=== PATIENT | female | born 1960 | race Caucasian/White ===

== ENCOUNTER 2017-08-15 20:29 | Emergency (ER) | payer OTHER ==
[~2017-08-15] VITALS: Ht 149.9 cm; Wt 43.5 kg
[2017-08-15] MEDS ORDERED: ONDANSETRON PF 4 MG/2 ML VIAL. IV ONE (21:00)
[2017-08-15 21:34] LABS: BASO % 1 % (0-3); EOS # 0.1 x10^3/uL (0.0-0.7); EOS % 1 % (0-3); HEMOGLOBIN 14.5 g/dL (12.0-15.5); LYMPH # 0.9 x10^3/uL (1.0-4.8); LYMPH % 16 % (24-48); MEAN CORPUSCULAR HEMOGLOBIN 36 pg (25-35); MEAN CORPUSCULAR HGB CONC 35 g/dL (31-37); MEAN CORPUSCULAR VOLUME 105 fL (79-100); MONO # 0.4 x10^3/uL (0.0-1.1); MONO % 7 % (0-9); NEUT # 4.2 x10^3uL (1.8-7.7); NEUT % 75 % (31-73); PLATELET COUNT 267 x10^3/uL (140-400); RED BLOOD COUNT 3.99 x10^6/uL (3.50-5.40); RED CELL DISTRIBUTION WIDTH 14.1 % (11.5-14.5); WHITE BLOOD COUNT 5.6 x10^3/uL (4.0-11.0)
[2017-08-15 21:42] LABS: CALCIUM 9.1 mg/dL (8.5-10.1); CREATININE 0.8 mg/dL (0.6-1.0); GFR 73.9; POTASSIUM 3.8 mmol/L (3.5-5.1)
--- NOTE | 2017-08-15 22:04 | RAD ---
Two-view right shoulder HISTORY: Pain status post fall Portable AP and Y views right shoulder obtained There is a mildly comminuted fracture of the right humeral neck with mild medial displacement. The glenohumeral relationship is normal. There are few old right rib fractures. IMPRESSION: Acute traumatic right humeral neck fracture. Electronically signed by: Colt Tobin III, MD (08/15/2017 10:01 PM) [facility]
[2017-08-15] MEDS ORDERED: IV NORMAL SALINE 1,000ML 1,000 ML IV ONE (22:45)
--- NOTE | 2017-08-15 23:58 | PHYS DOC ---
Past History Additional Past Medical Histor: Falls, Alcohol abuse Past Surgical History: Smoking: Cigarettes Alcohol Use: Heavy Drug Use: Marijuana Social History Narrative: Homeless; living at assisted presently Adult General Chief Complaint Chief Complaint: MECHANICAL FALL HPI HPI Patient is a 37 year old female who presents with fall. She was outside waiting on a cab to get into the homeless assisted for the night when she slipped on the ice. This is at 5 PM. She fell on her right shoulder. Denies striking her head, no loss of consciousness. Denies any neck back or other extremity pain. She is right-handed. She has frequent falls and noted that she fell down some steps one month ago was seen at [facility] and evaluated then. She has resolving bruising still on her face from that. Denies any injury to her face tonight. She does drink "nearly every day" and it has some alcohol today. Does smoke marijuana but denies any IV drug use. Review of Systems Review of Systems Constitutional: Denies fever or chills Eyes: Denies change in visual acuity, redness, or eye pain HENT: Denies nasal congestion or sore throat Respiratory: Denies cough or shortness of breath Cardiovascular: No chest pain GI: Denies abdominal pain, nausea, vomiting, bloody stools or diarrhea : Denies dysuria or hematuria Musculoskeletal: Denies back pain; POS right joint pain Integument: Denies rash or skin lesions Neurologic: Denies headache, focal weakness or sensory changes All other systems were reviewed and found to be within normal limits, except as documented in this note. Current Medications Current Medications Current Medications Medications (Trade) Dose Ordered Sig/[facility] Start Time Stop Time Status Last Admin Dose Admin Fentanyl Citrate (Fentanyl 2ml Vial) 50 mcg 1X ONCE 08/15/17 23:00 08/15/17 23:01 DC 08/15/17 22:53 50 MCG Ondansetron HCl (Zofran) 4 mg 1X ONCE 08/15/17 21:00 08/15/17 21:01 DC 08/15/17 20:59 4 MG Sodium Chloride 1,000 ml @ 1,000 mls/hr 1X ONCE 08/15/17 22:45 08/15/17 23:44 DC 08/15/17 22:53 1,000 MLS/HR Allergies Allergies Allergies Coded Allergies Type Severity Reaction Last Updated Verified No Known Drug Allergies 08/15/17 No Physical Exam Physical Exam Constitutional: Thin, ill-kempt, no acute distress, non-toxic appearance. HENT: Normocephalic, resolving ecchymosis to face, bilateral external ears normal, oropharynx moist, no oral exudates, nose normal. Eyes: PERRLA, EOMI, conjunctiva normal, no discharge. ill Neck: Normal range of motion, no tenderness, supple, no stridor. Non tender to palpation of cervical spine. No crepitus or step-off. Cardiovascular:Heart rate regular rhythm, no murmur. Nontender to palpation of chest wall. No crepitus or subcutaneous emphysema noted. Lungs & Thorax: Bilateral breath sounds clear to auscultation Abdomen: Bowel sounds normal, soft, no tenderness, no masses, no pulsatile masses. Skin: Warm, dry, no erythema, no rash. Back: No tenderness, no CVA tenderness. Extremities: Right shoulder with obvious deformity. Radial median ulnar nerve intact to motor and sensory. Axillary nerve intact to sensory. Normal neurovascular exam distally. Pain on palpation from the right shoulder to the right elbow. Forearm and wrist without any tenderness palpation. Neurologic: Alert and oriented X 3, normal motor function, normal sensory function, no focal deficits noted. Current Patient Data Vital Signs P 100, BP 130/83, sat 97% Lab Results Laboratory Tests Test 08/15/17 21:10 White Blood Count 5.6 x10^3/uL (4.0-11.0) Red Blood Count 3.99 x10^6/uL (3.50-5.40) Hemoglobin 14.5 g/dL (12.0-15.5) Hematocrit 42.0 % (36.0-47.0) Mean Corpuscular Volume 105 fL (79-100) H Mean Corpuscular Hemoglobin 36 pg (25-35) H Mean Corpuscular Hemoglobin Concent 35 g/dL (31-37) Red Cell Distribution Width 14.1 % (11.5-14.5) Platelet Count 267 x10^3/uL (140-400) Neutrophils (%) (Auto) 75 % (31-73) H Lymphocytes (%) (Auto) 16 % (24-48) L Monocytes (%) (Auto) 7 % (0-9) Eosinophils (%) (Auto) 1 % (0-3) Basophils (%) (Auto) 1 % (0-3) Neutrophils # (Auto) 4.2 x10^3uL (1.8-7.7) Lymphocytes # (Auto) 0.9 x10^3/uL (1.0-4.8) L Monocytes # (Auto) 0.4 x10^3/uL (0.0-1.1) Eosinophils # (Auto) 0.1 x10^3/uL (0.0-0.7) Basophils # (Auto) 0.0 x10^3/uL (0.0-0.2) Sodium Level 141 mmol/L (136-145) Potassium Level 3.8 mmol/L (3.5-5.1) Chloride Level 104 mmol/L (98-107) Carbon Dioxide Level 27 mmol/L (21-32) Anion Gap 10 (6-14) Blood Urea Nitrogen 7 mg/dL (7-20) Creatinine 0.8 mg/dL (0.6-1.0) Estimated GFR (Cockcroft-Gault) 73.9 Glucose Level 82 mg/dL (70-99) Lactic Acid Level 2.0 mmol/L (0.4-2.0) Calcium Level 9.1 mg/dL (8.5-10.1) Radiology/Procedures Radiology/Procedures Right shoulder xray interpreted by myself at 2115 PM with proximal humerus fracture. No dislocation but pseudosubluxation noted probably due to hemarthrosis. Very difficult to obtain films as patient is in a lot of discomfort. Right elbow x-rays interpreted by myself at 2310 PM show no effusion or obvious fracture. Again very difficult to obtain these films due to patient's inability to cooperate. [address] [address] IMAGING REPORT Signed PATIENT: MACHO ESPINAL ACCOUNT: [id number] : 1960 LOCATION: ER AGE: 57 SEX: F EXAM STATUS: PRE ER ORD. PHYSICIAN: DEBBI CID MD REASON: FALL PROCEDURE: SHOULDER 2+V RIGHT Two-view right shoulder HISTORY: Pain status post fall Portable AP and Y views right shoulder obtained There is a mildly comminuted fracture of the right humeral neck with mild medial displacement. The glenohumeral relationship is normal. There are few old right rib fractures. IMPRESSION: Acute traumatic right humeral neck fracture. Electronically signed by: Darek Saldivar III, MD (08/15/2017 10:01 PM) [facility] DICTATED AND SIGNED BY: DAREK SALDIVAR III, MD DATE: 08/15/17 3050 CC: DEBBI CID MD ~ Course & Med Decision Making Course & Med Decision Making Evaluated patient upon arrival. IV fentanyl was dosed for pain. Laboratory data was sent. X-rays were obtained and does not appear to be dislocated, does appear to have a hemarthrosis. I did ask radiology to confirm and agreed that the glenohumeral joint is intact. Elbow was difficult to obtain but again I do not believe there is any acute fracture noted there. Patient required multiple doses of IV fentanyl. At 2330 PM: spoke with Dr Fitzpatrick, Orthopedics at [facility] and Dr Mcbride, hospitalist at [facility] at they accept the patient in transfer. NPO, IV already established with fentanyl dosed for pain. Last ethanol use today (and she drinks "nearly every day"). last po intake 2030 PM. Placed in shoulder immobilizer. At 0008 AM: BP 129/71. Patient dosed with dilaudid with improvement. I have spoken with the patient and/or caregivers. I have explained the patient' s condition, diagnosis and treatment plan based on the information available to me at this time. I have answered the patient's and/or caregiver's questions and addressed any concerns. The patient and/or caregivers have as good an understanding of the patient's diagnosis, condition and treatment plan as can be expected at this point. The patient has been stabilized within the capability of the emergency department. The patient will be transported for further care and management or will be moved to an observation or inpatient service. I have communicated with the staff or medical practitioner taking over this patient's care. I have assessed this patient clinically and believe that their condition requires admission to the hospital. After consulting the admitting physician about this case, they have asked that I admit this patient to their service as an inpatient based on the clinical presentation and my impression. Dragon Disclaimer Dragon Disclaimer This electronic medical record was generated, in whole or in part, using a voice recognition dictation system. Departure Departure: Impression: Primary Impression: Fall Additional Impression: Closed fracture of right proximal humerus [facility] Condition: STABLE Referrals: PCP,NO (PCP) Problem Qualifiers Primary Impression: Fall Encounter type: initial encounter Qualified Codes: W19.XXXA - Unspecified fall, initial encounter Additional Impression: Closed fracture of right proximal humerus Encounter type: initial encounter Fracture morphology: other fracture Fracture alignment: displaced Qualified Codes: S42.291A - Other displaced fracture of upper end of right humerus, initial encounter for closed fracture DEBBI CID MD Aug 15, 2017 23:58
[2017-08-16] MEDS ORDERED: HYDROmorphone PF 1 MG/ML DISP.SYRIN IV ONE (00:30)
[2017-08-16] MEDS ORDERED: HYDROmorphone PF 2 MG/ML VIAL ONE (00:35)
[2017-08-16 00:54] LABS: BACTERIA,URINE MANY /HPF (0-FEW); BILIRUBIN,URINE NEG (NEG); CLARITY,URINE HAZY; COLOR,URINE YELLOW; GLUCOSE,URINE NEG (NEG); NITRITE,URINE POS (NEG); RBC,URINE OCC /HPF (0-2); SQUAMOUS EPITHELIAL CELL,UR FEW /LPF; UROBILINOGEN,URINE 0.2 mg/dL (0.2 mg/dL); WBC,URINE OCC /HPF (0-4)
[2017-08-16 02:54] VITALS: BP 119/72
--- NOTE | 2017-08-16 08:58 | RAD ---
2 views right elbow 08/15/2017 Clinical indication: Fall with right elbow pain. Comparison: None. Findings: Examination is significantly limited due to suboptimal patient positioning due to patient inability to maintain adequate position. Within these limitations, no definite evidence of acute elbow fracture or traumatic malalignment. Impression: 1. Significantly limited examination due to patient inability to maintain positioning. 2. Within these limitations, no definite acute osseous abnormality. Consideration for repeat examination when patient is able.
== END 2017-08-16 03:02 | disposition short-term general hospital (02) ==
LOC: ER 20:29
DX: S42.201A Unspecified fracture of upper end of right humerus, initial encounter for closed fracture (principal); F17.210 Nicotine dependence, cigarettes, uncomplicated; F12.10 Cannabis abuse, uncomplicated; F10.20 Alcohol dependence, uncomplicated; Z59.0 Homelessness; W00.0XXA Fall on same level due to ice and snow, initial encounter; Y93.89 Activity, other specified; Y92.89 Other specified places as the place of occurrence of the external cause; Y99.8 Other external cause status
CPT/HCPCS: 36415; 73030; 73070; 80048; 81001; 83605; 85025; 87086; 87186; 96361; 96374; 96375; 96376; 99285; J1170; J2405; J3010; J7030

== ENCOUNTER 2017-09-29 12:11 | Emergency (ER) | payer SELFPAY ==
[~2017-09-29] VITALS: Ht 149.9 cm; Wt 44.0 kg
--- NOTE | 2017-09-29 12:48 | PHYS DOC ---
Past History Past Medical History: Other Additional Past Medical Histor: Falls, Alcohol abuse Past Surgical History: , Other Smoking: Cigarettes Alcohol Use: Rarely Drug Use: None, Marijuana Adult General Chief Complaint Chief Complaint: WOUND CHECK HPI HPI 57-year-old female patient brought in from [facility], [place] for checking shoulder wound. Patient had a fall on Aug 16 and right shoulder surgery on August 25 and did not present to her primary care physician , ortho surgeon or ER for removing the andres. She denies fever and chills, drainage. Review of Systems Review of Systems Constitutional: Denies fever or chills [] Eyes: Denies change in visual acuity, redness, or eye pain [] HENT: Denies nasal congestion or sore throat [] Respiratory: Denies cough or shortness of breath [] Cardiovascular: No additional information not addressed in HPI [] GI: Denies abdominal pain, nausea, vomiting, bloody stools or diarrhea [] : Denies dysuria or hematuria [] Musculoskeletal: Denies back pain or joint pain [] Integument: Denies rash or skin lesions [] Neurologic: Denies headache, focal weakness or sensory changes [] Endocrine: Denies polyuria or polydipsia [] All other systems were reviewed and found to be within normal limits, except as documented in this note. Allergies Allergies Allergies Coded Allergies Type Severity Reaction Last Updated Verified No Known Drug Allergies 08/15/17 No Physical Exam Physical Exam Constitutional: No acute distress, non-toxic appearance. [] HENT: Normocephalic, atraumatic, bilateral external ears normal, oropharynx moist, no oral exudates, nose normal. [] Eyes: PERRLA, EOMI, conjunctiva normal, no discharge. [] Neck: Normal range of motion, no tenderness, supple, no stridor. [] Cardiovascular:Heart rate regular rhythm, no murmur [] Lungs & Thorax: Bilateral breath sounds clear to auscultation [] Skin: Warm, dry, no erythema, no rash. [] Extremities: Right shoulder with [address] with good healing without sign of erythema or infection Neurologic: Alert and oriented X 3, normal motor function, normal sensory function, no focal deficits noted. [] Current Patient Data Vital Signs Vital Signs Date Time Temp Pulse Resp B/P (MAP) Pulse Ox O2 Delivery O2 Flow Rate FiO2 09/29/17 12:25 98.6 87 16 97 Room Air EKG EKG [] Radiology/Procedures Radiology/Procedures [] Course & Med Decision Making Course & Med Decision Making Patient presented to ER for removal of andres that was placed on August 25 staple was removed by [employer]INEER without problem. Dragon Disclaimer Dragon Disclaimer This electronic medical record was generated, in whole or in part, using a voice recognition dictation system. Departure Departure: Impression: Primary Impression: Encounter for staple removal Disposition: HOME, SELF-CARE (Long Term house) Condition: STABLE Referrals: PCP,NO (PCP) Patient Instructions: Staple Removal, Care After ANALIA VASQUEZ MD Sep 29, 2017 12:48
[2017-09-29 12:51] VITALS: BP 110/66
== END 2017-09-29 12:58 | disposition home or self-care (01) ==
LOC: ER 12:11
DX: S42.301D Unspecified fracture of shaft of humerus, right arm, subsequent encounter for fracture with routine healing (principal); F17.210 Nicotine dependence, cigarettes, uncomplicated; F12.10 Cannabis abuse, uncomplicated; F10.10 Alcohol abuse, uncomplicated; W19.XXXD Unspecified fall, subsequent encounter
CPT/HCPCS: 99281

== ENCOUNTER 2020-09-20 21:02 | Inpatient (IN) | payer SELFPAY ==
[~2020-09-20] VITALS: Ht 149.9 cm; Wt 43.3 kg
--- NOTE | 2020-09-20 21:08 | PHYS DOC ---
Past History Past Medical History: Anxiety, Depression, Other Additional Past Medical Histor: Falls, Alcohol abuse Past Surgical History: , Other Smoking: Cigarettes Alcohol Use: Rarely Drug Use: None, Marijuana General Adult EDM: Chief Complaint: SUICIDAL IDEATION HPI: HPI: ".. I ve been drinking too much... but .. I drink too much every day... but I really depressed.. been thinking about killing myself to be with my son.. he in a accident..." Patient is a 60 year old female who presents with above hx of suicidal ideation and heavy alcohol abuse. Patient states she has had depressive episodes in the past. But never felt quite this bad. Patient requesting to talk to someone about her depression and grief. Patient does not normally follow-up with primary care. No recent travel. No specific ill contacts. Patient does smoke both tobacco and marijuana. Has had frequent falls. Tearful at times. Patient states she has quit drinking in the past, no respiratory symptoms or alcohol abuse. Patient denies any history of seizures when she does quit drinking. Review of Systems: Review of Systems: Constitutional: Denies fever or chills Eyes: Denies change in visual acuity HENT: Denies nasal congestion or sore throat Respiratory: Denies cough or shortness of breath Cardiovascular: Denies chest pain or edema GI: Denies abdominal pain, nausea, vomiting, bloody stools or diarrhea : Denies dysuria Musculoskeletal: Denies back pain or joint pain Integument: Denies rash Neurologic: Denies headache, focal weakness or sensory changes Endocrine: Denies polyuria or polydipsia Lymphatic: Denies swollen glands Psychiatric: Complains of depression and anxiety Family History: Family History: Patient declines family history Current Medications: Current Meds: See nursing for home meds Allergies: Allergies: Allergies Coded Allergies Type Severity Reaction Last Updated Verified No Known Drug Allergies 08/15/17 No Physical Exam: PE: Constitutional: In acute emotional distress very intoxicated in appearance appearance. [] HENT: Normocephalic, atraumatic, bilateral external ears normal, oropharynx moist, no oral exudates, nose normal. [] Eyes: PERRLA, EOMI, conjunctiva normal, no discharge. [] Neck: Normal range of motion, no tenderness, supple, no stridor. [] Cardiovascular:Heart rate regular rhythm, no murmur [] Lungs & Thorax: Bilateral breath sounds equal apex with scattered wheezes auscultation [] Abdomen: Bowel sounds normal, soft, no tenderness, no masses, no pulsatile masses. Liver edge palpable Skin: Warm, dry, no erythema, no rash. Poor turgor. Does have findings of various contusions different stages of healing Back: No tenderness, no CVA tenderness. [] Extremities: No tenderness, no cyanosis, no clubbing, ROM intact, no edema. Arthritic changes. Neurologic: Alert and oriented X 3, normal motor function, normal sensory function, no focal deficits noted. [] Psychologic: Affect anxious, judgement tired, appears to be intoxicated, , mood depressed and tearful EKG: EKG: My interpretation EKG shows a sinus rhythm at 88 bpm. Does have PACs. But no findings of acute STEMI or contralateral changes. [] Radiology/Procedures: Radiology/Procedures: [][address] [address] IMAGING REPORT Signed PATIENT: MACHO ESPINAL ACCOUNT: [id number] : 1960 LOCATION: ER AGE: 60 SEX: F EXAM STATUS: PRE ER ORD. PHYSICIAN: CARLA MCHUGH MD REASON: Recent fall, weakness, cough, congestion PROCEDURE: ACUTE ABDOMEN SERIES EXAM: XR ABDOMEN COMP ACUTE 09/20/2020 9:24 PM CLINICAL INDICATION: Chest pain, recent fall, weakness, pain, congestion COMPARISON: Chest radiograph 08/17/2017 TECHNIQUE: AP supine and upright view the abdomen and PA view of the chest FINDINGS: The cardiomediastinal silhouette is normal. Lungs are hyperexpanded. There is unchanged scarring in the right upper lobe. The lungs are otherwise clear. No pneumothorax. Probable small pleural effusions versus pleural thickening.. Bowel gas pattern is nonspecific and nonobstructive. No pneumoperitoneum. The liver appears enlarged. There are calcifications in the abdominal aorta and iliac arteries. There are multiple old bilateral rib fractures. Left distal clavicular resection is unchanged. IMPRESSION: 1. Hyperexpanded lungs with unchanged scarring in the right upper lobe. Probable small pleural effusions or pleural thickening. 2. No acute abdominal abnormality. 3. Liver appears enlarged. Electronically signed by: Lilo Zimmer MD (09/20/2020 10:00 PM) [id number] DICTATED AND SIGNED BY: LILO ZIMMER MD DATE: 09/20/202150 CC: CARLA MCHUGH MD; PCP,NO ~MTH0 0 Heart Score: HEART Score for Chest Pain: HEART Score for Chest Pain Response (Comments) Value History Slighlty/Non-Suspicious 0 ECG Normal 0 Age < 45 0 Risk Factors 1 or 2 Risk Factors 1 Troponin < Normal Limit 0 Total 1 Risk Factors: Risk Factors: DM, Current or recent (<one month) smoker, HTN, HLP, family his tory of CAD, obesity. Risk Scores: Score 0 - 3: 2.5% MACE over next 6 weeks - Discharge Home Score 4 - 6: 20.3% MACE over next 6 weeks - Admit for Clinical Observation Score 7 - 10: 72.7% MACE over next 6 weeks - Early Invasive Strategies Course & Med Decision Making: Course & Med Decision Making Pertinent Labs and Imaging studies reviewed. (See chart for details) Psych eval. Telepsych said she was too intoxicated to adequately evaluate her depression recommended reevaluation once sober Discussed presentation, testing and tx. plan with Dr. Oglesby- admit to his service in ICU. Impression: 1. Alcohol Abuse 287 2. Suicidal Ideation/ Depression 3. Hypokalemia 2.8 4. Hyponatremia 135 5. Thrombocytopenia 128 cith Macrocytosis 105, Elev. HC 36 6. Elevated D Bililary 0.5, AST 128, ALT 97 7. Hx. COPD 8. Tobacco and Marijuana Use 9. Falls [] Dragon Disclaimer: Dragon Disclaimer: This electronic medical record was generated, in whole or in part, using a voice recognition dictation system. Departure Departure: Referrals: PCP,NO (PCP) Dragon Disclaimer This chart was dictated in whole or in part using Voice Recognition software in a busy, high-work load, and often noisy Emergency Department environment. It may contain unintended and wholly unrecognized errors or omissions. Dragon Disclaimer This chart was dictated in whole or in part using Voice Recognition software in a busy, high-work load, and often noisy Emergency Department environment. It may contain unintended and wholly unrecognized errors or omissions. CARLA MCHUGH MD Sep 20, 2020:08
[2020-09-20] MEDS ORDERED: IV RINGERS SOLUTION,LACTATED 1,000 ML IV SCH (21:15)
[2020-09-20] MEDS ORDERED: ONDANSETRON PF 4 MG/2 ML VIAL. IVP ONE (21:15)
[2020-09-20] MEDS ORDERED: FAMOTIDINE 20 MG/2 ML VIAL IVP ONE (21:15)
[2020-09-20 21:30] LABS: BASO % 1 % (0-3); EOS # 0.1 x10^3/uL (0.0-0.7); EOS % 1 % (0-3); HEMATOCRIT 41.2 % (36.0-47.0); LYMPH # 2.1 x10^3/uL (1.0-4.8); LYMPH % 42 % (24-48); MEAN CORPUSCULAR HEMOGLOBIN 36 pg (25-35); MEAN CORPUSCULAR HGB CONC 34 g/dL (31-37); MEAN CORPUSCULAR VOLUME 105 fL (79-100); MONO # 0.6 x10^3/uL (0.0-1.1); MONO % 11 % (0-9); NEUT # 2.2 x10^3uL (1.8-7.7); NEUT % 45 % (31-73); PLATELET COUNT 128 x10^3/uL (140-400); RED BLOOD COUNT 3.93 x10^6/uL (3.50-5.40); RED CELL DISTRIBUTION WIDTH 13.2 % (11.5-14.5)
[2020-09-20] MEDS ORDERED: RINGERS LACTATED IV ONE (21:45)
[2020-09-20] MEDS ORDERED: THIAMINE IV ONE (21:45)
[2020-09-20] MEDS ORDERED: FOLIC ACID IV ONE (21:45)
[2020-09-20 21:50] LABS: ALBUMIN 3.3 g/dL (3.4-5.0); CALCIUM 8.6 mg/dL (8.5-10.1); CREATININE 0.9 mg/dL (0.6-1.0); DIRECT BILIRUBIN 0.5 mg/dL (0.0-0.2); GFR 63.9; TOTAL BILIRUBIN 0.6 mg/dL (0.2-1.0); TOTAL PROTEIN 9.6 g/dL (6.4-8.2)
[2020-09-20 21:54] LABS: POTASSIUM 2.8 mmol/L (3.5-5.1)
[2020-09-20 21:56] LABS: ETHANOL 287 mg/dL (0-10); SALIC 8.9 mg/dL (2.8-20.0)
[2020-09-20 21:57] LABS: ACETAMIN < 2.0 mcg/mL (10-30)
[2020-09-20] MEDS ORDERED: POTASSIUM CHLORIDE 20 MEQ TABLET.ER. PO ONE (22:00)
--- NOTE | 2020-09-20 22:02 | EKG ---
[address] [address] Test Date: 2020-09-20 Test Time: 21:28:45 Pat Name: MACHO ESPINAL Department: Room: Gender: F User Experience Researcher: BRET : 1960 Requested By: CARLA MCHUGH Order Number: [id number] Reading MD: Measurements Intervals [place] Rate: 88 P: 71 FL: 128 QRS: 71 QRSD: 76 T: 71 QT: 378 QTc: 461 Interpretive Statements SINUS RHYTHM ATRIAL PREMATURE COMPLEX(ES) OTHERWISE NORMAL ECG RI6.02 No previous ECG available for comparison
--- NOTE | 2020-09-20 22:03 | RAD ---
EXAM: XR ABDOMEN COMP ACUTE 09/20/2020 9:24 PM CLINICAL INDICATION: Chest pain, recent fall, weakness, pain, congestion COMPARISON: Chest radiograph 08/17/2017 TECHNIQUE: AP supine and upright view the abdomen and PA view of the chest FINDINGS: The cardiomediastinal silhouette is normal. Lungs are hyperexpanded. There is unchanged sc arring in the right upper lobe. The lungs are otherwise clear. No pneumothorax. Probable small pleura l effusions versus pleural thickening.. Bowel gas pattern is nonspecific and nonobstructive. No pneum operitoneum. The liver appears enlarged. There are calcifications in the abdominal aorta and iliac ar teries. There are multiple old bilateral rib fractures. Left distal clavicular resection is unchanged . IMPRESSION: 1. Hyperexpanded lungs with unchanged scarring in the right upper lobe. Probable small pleural effusi ons or pleural thickening. 2. No acute abdominal abnormality. 3. Liver appears enlarged. Electronically signed by: Lilo Zimmer MD (09/20/2020 10:00 PM) [id number]
[2020-09-20 22:56] LABS: BARBITURATES NEG (NEG); BENZODIAZEPINES NEG (NEG); CANNABINOIDS POS (NEG); COCAINE NEG (NEG); METHADONE NEG (NEG); OPIATES NEG (NEG); PHENCYCLIDINE NEG (NEG)
[2020-09-20 23:03] LABS: BACTERIA,URINE MANY /HPF (0-FEW); BILIRUBIN,URINE NEG (NEG); CLARITY,URINE CLEAR; COLOR,URINE YELLOW; GLUCOSE,URINE NEG (NEG); NITRITE,URINE POS (NEG); RBC,URINE 0 /HPF (0-2); SQUAMOUS EPITHELIAL CELL,UR OCC /LPF; UROBILINOGEN,URINE 0.2 mg/dL (0.2 mg/dL)
[2020-09-20] MEDS: POTASSIUM CHLORIDE 20MEQ 100 ML IV SCH (23:10)
[2020-09-20 23:13] LABS: AMPHETAMINE/METHAMPHETAMINE NEG (NEG)
[2020-09-21] VITALS (8 sets, daily range): BP systolic 89–136; BP diastolic 50–79
[2020-09-21] MEDS: POTASSIUM CHLORIDE 20MEQ 100 ML IV SCH (01:57)
[2020-09-21 06:35] LABS: INFLUENZA A PATIENT NEGATIVE (NEGATIVE); INFLUENZA B PATIENT NEGATIVE (NEGATIVE)
--- NOTE | 2020-09-21 09:59 | HP ---
ADMIT DATE: 09/21/2020 ADMISSION HISTORY AND PHYSICAL ATTENDING PHYSICIAN: Dr. Cornelio Campbell SUBJECTIVE: I feel like killing myself to be with my son. HISTORY OF PRESENT ILLNESS: The patient is a 60-year-old female, chronic alcoholic, who continues to drink. She became despondent. She has had depressive episodes. She presented to the ED intoxicated with a blood alcohol level of 283. She told the ER staff that I drink too much every day, I am very depressed, I am thinking about killing myself to be with my son. He evidently in an accident. I do not know any further details. In any event, she was in no condition to go home. We were called for admission to stabilize medically. She is a smoker. She also has a recent urinary tract infection. PAST MEDICAL HISTORY: Significant for chronic alcoholism, depression, anxiety and current UTI. ALLERGIES: SHE HAS ALLERGIES TO CODEINE. CURRENT MEDICATIONS: Prescription none. SOCIAL HISTORY: As noted. FAMILY HISTORY: Mom of breast cancer at age 68. Father of prostate cancer, age 70. No further details available. REVIEW OF SYSTEMS: No COVID exposure. She is a smoker. She has a chronic cough. She has very poor dental repair. All other systems reviewed and determined to be negative. PHYSICAL EXAMINATION: GENERAL: When I saw her, this is a chronically ill-appearing female, appearing older than her stated age. INITIAL VITAL SIGNS: Her blood pressure is 136/68, pulse 78 and regular. She is afebrile. Oxygen saturation 93% on room air. HEENT: Head is without trauma. Pupils are reactive. Sclerae nonicteric. Very poor dental repair. NECK: Supple. No stridor. LUNGS: Clear. CARDIOVASCULAR: Showed regular heart tones. No gallops. ABDOMEN: Soft. EXTREMITIES: Without edema. NEUROLOGIC: Focally intact. She is sober this morning. She appears remorseful. She has no suicidal ideation. Affect is appropriate. SKIN: Warm and dry. PERTINENT LABORATORY STUDIES: Sodium 135 mEq, potassium 2.8 mEq. Alcohol level was 287 on admission. Hemoglobin 14.0 gram, white cell count is 5000. ASSESSMENT: 1. A 60-year-old female, chronic alcoholic. 2. Suicidal ideation. 3. Major depression with anxiety. 4. Urinary tract infection. 5. Asymptomatic hypokalemia. PLAN: 1. Admit to the ICU. 2. The patient's water safety teacher for one-on-one monitoring. 3. PAT team to see in the morning to evaluate her. 4. Potassium supplementation. 5. Diet as tolerated. CORNELOI CAMPBELL MD DR: CASEY/kd JOB#: [id number] / [id number]
--- NOTE | 2020-09-21 12:04 | DS ---
DATE OF DISCHARGE: 09/21/2020 ATTENDING PHYSICIAN: Dr. Campbell. FINAL DISCHARGE DIAGNOSES: 1. Acute alcohol intoxication. 2. Chronic alcoholism. 3. Suicidal ideation. 4. Major depression with anxiety. 5. Recent urinary tract infection. 6. Asymptomatic hypokalemia. HISTORY AND PHYSICAL: The 60-year-old female, unfortunately drink excess. She became despondent. She was contemplating suicidal ideation regarding the loss of her son, he in an accident. She was also intoxicated with a blood alcohol level 287 mg/dL. PHYSICAL EXAMINATION: Please see the dictated note. PERTINENT LABORATORY AND X-RAY STUDIES: Hemoglobin maintained at 14.0 g/dL with white count of 5000. Potassium on admission was 2.8 mEq. She was asymptomatic. Supplementation was administered and this will be followed up as an outpatient. Once again, she had no symptoms. Cardiac enzymes negative for coronary ischemia. Transaminases slightly elevated with AST of 178 and ALT of 97, total bilirubin 0.6. COURSE IN THE HOSPITAL: The patient was admitted. She was monitored with the patient's safety admin assistant. She was stable. Diet was advanced. Potassium supplementation was ordered orally. By the next morning, when I saw her, she was sober. She was also remorseful. Our colleagues from the psychiatric assessment team came by, assessed the patient and determined that she was not a suicidal risk at this time and he formulated a safe discharge plan for outpatient psychiatric care. She was stable from a medical standpoint. Therefore, the patient was discharged from our hospital in stable condition with explicit instructions and followup care. Please refer to psychiatric evaluation team's formulated plan. CORNELIO CAMPBELL MD DR: CASEY/kd JOB#: [id number] / [id number]
[2020-09-21] MEDS ORDERED: CYANOCOBALAMIN (VITAMIN B-12) 1,000 MCG/ML VIAL. IM ONE (17:00)
== END 2020-09-21 17:50 | disposition home or self-care (01) | DRG 897 ==
LOC: ER 21:02 → ICU 23:30
PROVIDERS: ADMIT Hospitalist; ATTEND Hospitalist
DX: F10.229 Alcohol dependence with intoxication, unspecified (principal); E87.1 Hypo-osmolality and hyponatremia; N39.0 Urinary tract infection, site not specified; R45.851 Suicidal ideations; D69.6 Thrombocytopenia, unspecified; D75.89 Other specified diseases of blood and blood-forming organs; E87.6 Hypokalemia; F12.90 Cannabis use, unspecified, uncomplicated; F17.200 Nicotine dependence, unspecified, uncomplicated; F41.8 Other specified anxiety disorders; J44.9 Chronic obstructive pulmonary disease, unspecified; R29.6 Repeated falls; Y90.8 Blood alcohol level of 240 mg/100 ml or more; Z80.3 Family history of malignant neoplasm of breast; Z80.42 Family history of malignant neoplasm of prostate; F41.9 Anxiety disorder, unspecified; Z88.8 Allergy status to other drugs, medicaments and biological substances; Z20.822 Contact with and (suspected) exposure to COVID-19
CPT/HCPCS: 36415; 74022; 80048; 80076; 80307; 80329; 81001; 82550; 83690; 84484; 85025; 85610; 85730; 87086; 87804; 93005; 96365; 96375; G0480; J0696; J2405; J3420; J3480; J3490; J7120; U0003; 99285-25

== ENCOUNTER 2021-02-06 09:22 | Emergency (ER) | payer SELFPAY ==
[~2021-02-06] VITALS: Ht 149.9 cm; Wt 43.3 kg
[2021-02-06] MEDS ORDERED: ONDA4TAB12 PO (09:59)
[2021-02-06] MEDS ORDERED: CYCL-331 PO (09:59)
--- NOTE | 2021-02-06 09:59 | PHYS DOC ---
Past History Past Medical History: Anxiety, Depression, Other Additional Past Medical Histor: Falls, Alcohol abuse Past Surgical History: Cholecystectomy, , Other Smoking: Cigarettes Alcohol Use: Occasionally Drug Use: None, Marijuana General Adult EDM: Chief Complaint: BACK PAIN OR INJURY HPI: HPI: 60-year-old female presents with left-sided low back pain and nausea. The patient states that she has been walking around and carrying things and going up and down hills. She thinks maybe that is why her low back hurts. She denies a ny falls or trauma. She states that it is tight and she has intermittent spasms on the left side. She does not take any medications. She denies any numbness or tingling in her legs. She also states feeling nauseated. She does have a bottle of water sitting next to her bed. She has no other complaints at this time. Review of Systems: Review of Systems: Constitutional: Denies fever or chills Eyes: Denies change in visual acuity HENT: Denies nasal congestion or sore throat Respiratory: Denies cough or shortness of breath Cardiovascular: Denies chest pain or edema GI: Denies abdominal pain, nausea, vomiting, bloody stools or diarrhea : Denies dysuria Musculoskeletal: Left-sided low back pain Integument: Denies rash Neurologic: Denies headache, focal weakness or sensory changes Endocrine: Denies polyuria or polydipsia Lymphatic: Denies swollen glands Psychiatric: Denies depression or anxiety Current Medications: Current Meds: Current Medications Medications (Trade) Dose Ordered Sig/[facility] Start Time Stop Time Status Last Admin Dose Admin Cyclobenzaprine HCl (Flexeril) 10 mg 1X ONCE 02/06/21 10:15 02/06/21 10:16 Naproxen (Naprosyn) 500 mg 1X ONCE 02/06/21 10:15 02/06/21 10:16 Ondansetron HCl (Zofran Odt) 4 mg 1X ONCE 02/06/21 10:15 02/06/21 10:16 Allergies: Allergies: Allergies Coded Allergies Type Severity Reaction Last Updated Verified codeine Allergy Unknown 09/20/20 Yes Physical Exam: PE: Constitutional: Well developed, well nourished, no acute distress, non-toxic appearance. [] HENT: Normocephalic, atraumatic, bilateral external ears normal, oropharynx moist, no oral exudates, nose normal. [] Eyes: PERRLA, EOMI, conjunctiva normal, no discharge. [] Neck: Normal range of motion, no tenderness, supple, no stridor. [] Cardiovascular: Heart rate regular rhythm, no murmur [] Lungs & Thorax: Bilateral breath sounds clear to auscultation [] Abdomen: Bowel sounds normal, soft, no tenderness, no masses, no pulsatile masses. [] Skin: Warm, dry, no erythema, no rash. [] Back: Mild paraspinal lumbar tenderness on the left with muscle tightness. [] Extremities: No tenderness, no cyanosis, no clubbing, ROM intact, no edema. [] Neurologic: Alert and oriented X 3, normal motor function, normal sensory function, no focal deficits noted. [] Psychologic: Affect normal, judgement normal, mood normal. [] Current Patient Data: Vital Signs: Vital Signs Date Time Temp Pulse Resp B/P (MAP) Pulse Ox O2 Delivery O2 Flow Rate FiO2 02/06/21 09:30 98.7 85 18 132/61 99 EKG: EKG: [] Radiology/Procedures: Radiology/Procedures: [] Heart Score: C/O Chest Pain: N/A Risk Factors: Risk Factors: DM, Current or recent (<one month) smoker, HTN, HLP, family history of CAD, obesity. Risk Scores: Score 0 - 3: 2.5% MACE over next 6 weeks - Discharge Home Score 4 - 6: 20.3% MACE over next 6 weeks - Admit for Clinical Observation Score 7 - 10: 72.7% MACE over next 6 weeks - Early Invasive Strategies Course & Med Decision Making: Course & Med Decision Making Pertinent Labs and Imaging studies reviewed. (See chart for details) The patient appears to have a low back strain. She has not taken muscle relaxers in the past. I will give the patient 500 mg of naproxen in the ED, 10 mg of Flexeril, and 4 mg of Zofran. I will discharge her with a prescription for Flexeril and Zofran ODT. She is stable for discharge at this time. [] Dragon Disclaimer: Dragon Disclaimer: This electronic medical record was generated, in whole or in part, using a voice recognition dictation system. Departure Departure: Impression: Primary Impression: Low back pain Qualified Codes: M54.5 - Low back pain Disposition: HOME / SELF CARE / HOMELESS Condition: STABLE Referrals: PCP,NO (PCP) Patient Instructions: Low Back Strain with [facility] Ondansetron (ONDANSETRON ODT) 4 Mg Tab.rapdis 1 TAB PO PRN Q6-8HRS PRN for VOMITING, #16 TAB Prov: LANI SOLIS DO 02/06/21 Cyclobenzaprine Hcl (CYCLOBENZAPRINE HCL) 10 Mg Tablet 1 TAB PO TID PRN for MUSCLE SPASMS, #30 TAB Prov: LANI SOLIS DO 02/06/21 LANI SOLIS DO Feb 06, 2021 09:59
[2021-02-06] MEDS ORDERED: ONDANSETRON ODT 4 MG TAB.RAPDIS PO ONE (10:15)
[2021-02-06] MEDS ORDERED: NAPROXEN 500 MG TABLET PO ONE (10:15)
[2021-02-06] MEDS ORDERED: CYCLOBENZAPRINE 10 MG TABLET. PO ONE (10:15)
[2021-02-06 10:30] VITALS: BP 134/62
== END 2021-02-06 10:30 | disposition home or self-care (01) ==
LOC: ER 09:22
DX: M54.5 Low back pain (principal); R11.0 Nausea; M62.830 Muscle spasm of back; F41.9 Anxiety disorder, unspecified; F32.9 Major depressive disorder, single episode, unspecified; F17.210 Nicotine dependence, cigarettes, uncomplicated; Z90.49 Acquired absence of other specified parts of digestive tract; Z98.890 Other specified postprocedural states; Z88.5 Allergy status to narcotic agent
CPT/HCPCS: 99284; Q0162